=== PATIENT | female | born 1985 ===

== ENCOUNTER 2023-06-06 09:05 | Outpatient (CLI) | payer OTHER ==
[~2023-06-06 09:05] MED LIST: IRON PO; MORGIDOX100 MG PO; NAPR500T14 PO
== END 2023-06-06 09:11 | disposition home or self-care (01) ==
LOC: RX STUDY 09:05
PROVIDERS: ATTEND Obstetrics & Gynecology
DX: N84.0 Polyp of corpus uteri (principal); N80.319 Endometriosis of the anterior cul-de-sac, unspecified depth